=== PATIENT | female | born 1935 | race Caucasian/White ===

== ENCOUNTER 2020-12-01 11:01 | Outpatient (RCR) | payer MEDICARE, OTHER, SELFPAY ==
[2020-12-01] MEDS: COVID-19 VACC, MRNA(PFIZER)/PF 30 MCG/0.3 ML SYRINGE IM (17:17)
[2020-12-22] MEDS: COVID-19 VACC, MRNA(PFIZER)/PF 30 MCG/0.3 ML SYRINGE IM (16:59)
== END 2021-03-02 23:59 ==
LOC: IMMUN 11:01
PROVIDERS: PCP Family Medicine; Referring Provider Family Medicine; Visit Provider Family Medicine
DX: Z23 Encounter for immunization (principal)
CPT/HCPCS: 0001A; 0002A; 91300

== ENCOUNTER 2021-10-29 20:30 | Emergency (ER) | payer MEDICARE, SELFPAY ==
[2021-10-29 20:31] VITALS: BP 220/93; PULSE 76; RESP 14; TEMP 36.4; O2SAT 96; BMI 33.1
--- NOTE | 2021-10-29 20:49 | EDS_ITS ---
HPI HPI - Fall History of Present Illness Chief Complaint: Fall Narrative Narrative: 86-year-old female presenting for evaluation after a fall. Apparently she walked out to her mailbox and slipped in the snow. She denies any injury. She does admit that she has chronic right knee pain and states this is my bad knee. She states she got hurt when she fell. She was unable to get up due to being in the snow when she states that she could not situate herself enough to get up. She states that at baseline she probably would not be able to get up in the snow like this. She states she would typically have difficulty getting up like this on a regular floor however. She estimates she was outside for about 20 minutes. She states she was initially cold but is feeling warm now. She denies hitting her head or loss of consciousness. She denies neck pain or back pain. Patient denies nausea or vomiting. [facility] Medical History HTN (hypertension) Home Medications NK 10/29/21 [History Last Taken Unknown] Allergy/AdvReac Type Severity Reaction Status Date / Time No Known Allergies Allergy Verified 10/29/21 20:38 Surgical History H/O: hysterectomy Social History Smoking Status: Current every day smoker tobacco type: cigarettes ROS ROS ED Constitutional Constitutional ED: Denies fever(s) or subjective Eyes Eyes: Denies blurry vision or diplopia ENT ENT ED: Denies rhinorrhea or sore throat Cardiovascular Cardiovascular: Denies chest pain or palpitations Respiratory/Chest Respiratory/Chest: Denies cough or dyspnea Gastrointestinal Gastrointestinal: Denies abdominal pain or nausea Genitourinary Genitourinary ED: Denies dysuria or hematuria Musculoskeletal Musculoskeletal: Denies arthralgias or myalgias Integumentary Denies rash Neurologic Neurologic: Denies headache(s) or weakness Psychiatric Psychiatric: Denies anxiety or depression EXAM Physical Exam Const Vital Signs: 10/29/21 20:31 Temperature 97.6 F L Temperature Source Temporal Pulse Rate 76 Respiratory Rate 14 Blood Pressure 220/93 H Blood Pressure Mean 135 Pulse Ox 96 Oxygen Delivery Method Room Air Positive well nourished General Appearance ED: [facility] Reports normocephalic atraumatic Eyes PERRL and EOMs intact bilaterally Resp normal respiratory effort and clear to auscultation bilaterally Cardio regular rate and regular rhythm Extremity Extremity Narrative: Tenderness palpation over the right knee. patient was good able to get up and ambulate to the restroom. Neuro oriented x3, CN's II-XII intact bilaterally, moves all extremities and no focal motor deficits Sensorium / Orientation: alert Psych mental status grossly normal and thought process normal Skin Lesions: no lesions Rashes: no rashes MDM MDM MDM Narrative Medical decision making narrative: Patient presents for evaluation secondary to a fall. She states she was out the snow for about 20 minutes. She states her knee hurts chronically and she did not injure this in the fall. Patient denies hitting her head. Her grandson is at the bedside and states she is mentally at baseline. He states that sometimes she is a little forgetful otherwise she is acting normally. Patient was able to get up and ambulate to the restroom without assistance. Patient was found to be a little hypertensive. She states she did not take her blood pressure medicine today. She denied having headache, blurry vision, nausea, confusion. She states that she will take it when she gets home. Her grandson is able to assist her home. Impression: 1. Mechanical fall 2. Chronic right knee pain 3. Hypertension Discharge Plan Triage Chief Complaint: Fall Other Complaint: Confusion ED Provider: Dong Joseph Dx/Rx/DC Orders Instructions: ED Fall Prevention Prescriptions: No Action NK RF: 0 Primary Care Provider: Philly Landry Referrals: Philly Landry, [Primary Care Provider] - Disposition Disposition: Home, Self Care
[2021-10-29 21:28] VITALS: BP 201/79; PULSE 68; RESP 15; O2SAT 97
== END 2021-10-29 21:29 | disposition home or self-care (01) ==
PROVIDERS: Emergency Provider Student in an Organized Health Care Education/Training Program; PCP Family Medicine; Visit Provider Student in an Organized Health Care Education/Training Program
DX: M25.561 Pain in right knee (principal); W00.0XXA Fall on same level due to ice and snow, initial encounter; Y93.01 Activity, walking, marching and hiking; Y92.9 Unspecified place or not applicable; I10 Essential (primary) hypertension; G89.29 Other chronic pain; F17.210 Nicotine dependence, cigarettes, uncomplicated
CPT/HCPCS: 99284; A4216